=== PATIENT | male | born 1960 | race Caucasian/White ===

== ENCOUNTER 2023-06-23 06:32 | Day surgery (SDC) | payer BC, SELFPAY ==
[2023-06-09 07:29] VITALS: BMI 34.5
[2023-06-09 09:18] LABS: Hematocrit 44.9 % (39.0-52.0); Hemoglobin 14.9 g/dL (13.0-18.0); Mean Corp Hgb Conc. 33.2 g/dL (33.0-37.0); Mean Corpuscular Hgb 31.8 pg (27.0-31.0); Mean Corpuscular Volume 95.7 fL (80.0-94.0); Mean Platelet Volume 10.1 fL (7.4-10.4); Platelet Count 218 10^3/uL (130-400); Red Blood Cell Count 4.69 10^6/uL (4.70-6.10); Red Cell Dist. Width 14.7 % (11.5-14.5); White Blood Cell Count 5.2 10^3/uL (4.8-10.8)
[2023-06-09 09:30] LABS: INR 1.05; PT 13.5 Sec (11.4-14.6)
[2023-06-09 09:31] LABS: APTT 31.4 Sec (23.4-35.0)
[2023-06-09 11:25] LABS: Blood Urea Nitrogen 21 mg/dl (9-20); Calcium 9.8 mg/dl (8.4-10.2); Carbon Dioxide 21 mmol/L (22-30); Chloride 106 mmol/L (98-107); Estimated Creatinine Clearance 120 ml/min; Glucose 93 mg/dl (70-99); Potassium 4.5 mmol/L (3.5-5.1); Sodium 138 mmol/L (135-145); eGFR > 60.00
--- NOTE | 2023-06-15 10:57 | PTCARENOTE ---
Late Note- patients 4/2 EKG abnormal- reviewed by Dr. Joaquin on 06/09- no additional interventions required
[2023-06-23] VITALS (11 sets, daily range): BP systolic 78–151; BP diastolic 56–96; BMI 34.5
[2023-06-23] MEDS: CYSVIEW KIT 100 MG INTRAVES (07:38)
[2023-06-23] MEDS: NORMOSOL-R 1000 IV (07:58)
[2023-06-23] MEDS: Pyridium 200 MG PO (10:16)
[2023-06-23] MEDS: ROXICODONE 5 MG PO (11:36)
== END 2023-06-23 12:25 | disposition home or self-care (01) ==
LOC: SDS 06:32
PROVIDERS: ATTENDING PHYSICIAN Specialist; FAMILY PHYSICIAN Family Medicine
DX: N30.80 Other cystitis without hematuria (principal); Z85.51 Personal history of malignant neoplasm of bladder
CPT/HCPCS: 52234; C9738; 88307; 36415; 80048; 85027; 85610; 85730; 93005; A9589